=== PATIENT | male | born 1965 | race Caucasian/White ===

== ENCOUNTER → 2019-04-27 | Outpatient (CLI) | payer BC ==
--- NOTE | 2019-04-27 11:13 | PCVCIMAG ---
APPROVED REPORT Study performed: 04/27/2019 10:16:15 Exam: Stress Echocardiogram Indication: chest pressure, palpitations, dyspnea, htn Patient Location: Echo lab Stress Nurse: Daphnie Grewal RN Status: routine Ht: 5 ft 10 in HR: 75 bpm BP: 132/84 mmHg Rhythm: NSR Procedure The patient underwent an Exercise Stress Test using the Devin Protocol. Blood pressure, heart rate, and EKG were monitored. An Echocardiogram was performed by c2 tactical analysis technician in four stages in quad fashion. At peak stress, four selected images were obtained and placed side by side with resting images for comparison. Stress Test Details Stress Test: Exercise stress testing was performed using a Devin protocol. HR Resting HR: 75 bpmMax Heart Rate (APMHR): 166 bpm Max HR Achieved: 157 bpmTarget HR (85% APMHR): 141 bpm % of APMHR: 94 Recovery HR: 105 bpm HR response to stress: Normal HR response to stress BP Resting BP: 132/84 mmHg Max BP: 182/86 mmHg Recovery BP: 136/80 mmHg BP response to stress: Normal blood pressure response to stress. ECG Resting ECG: Sinus Rhythm w/ PVCs Stress ECG: Sinus Rhythm ST Change: Non-ischemic Arrhythmia: frequent PVCs that improved with exercise Recovery ECG: Sinus Rhythm Recovery ST Change: Normal Recovery Arrhythmia: PVCs Clinical Reason for Termination: Maximal effort Stress Symptoms: Dyspnea Exercise duration: 13 min 10 sec Highest Stage Achieved: Stage 5: 5.0 mph at 18% grade. Exercise capacity: 17.2 METs Overall Exercise Capacity for Age: Good Scale: Active Angina Score: None Pre-Stress Echo The resting Echocardiogram showed normal left ventricular contractility with an estimated Ejection Fraction of about 50%. The resting echocardiogram demonstrated normal wall motion in all wall segments. Normal wall motion in all segments on baseline images. Post-Stress Echo The stress Echocardiogram showed normal left ventricular contractility with an estimated Ejection Fraction of about 65-70%. Compared to rest, there were no stress-induced wall motion abnormalities. Normal augmentation of wall motion in all segments on post stress images. Clinical No clinical or ECG evidence for ischemia. Conclusion Clinical Response: Non-ischemic Exercise Capacity: Superior Stress ECG Response: Non-ischemic Stress Echo Images: Non-ischemic The left ventricle is normal in size and wall thickness in both the rest and stress images. Other Information Study Quality: Adequate <Conclusion> The left ventricle is normal in size and wall thickness in both the rest and stress images.
== END | disposition home or self-care (01) ==
LOC: PCVCIMAG 10:26
PROVIDERS: ATTEND Internal Medicine Cardiovascular Disease
DX: R07.89 Other chest pain (principal); R00.2 Palpitations; R06.00 Dyspnea, unspecified; I10 Essential (primary) hypertension
CPT/HCPCS: 93325; 93351